=== PATIENT | male | born 1975 | race Caucasian/White ===

== ENCOUNTER 2019-07-26 12:43 | Outpatient (CLI) | payer BC ==
--- NOTE | 2019-07-28 00:12 | Ultrasound Report ---
Reason: LEFT TESTICULAR PAIN ORCHITITS / EPIDIDYMITIS Procedure Date: 07/26/2019 Accession Number: [id number] / [id number] Procedure: US - Testicle w/Doppler CPT Code: FULL RESULT: EXAM: SCROTAL ULTRASOUND EXAM DATE: 07/26/2019 01:43 PM. CLINICAL HISTORY: Left testicular pain, orchitis/epididymitis. COMPARISON: None. TECHNIQUE: Real-time scanning was performed with static images obtained. Color-flow images were utilized. FINDINGS: Right: Testis: 5.4 x 2.8 x 3.8 cm. Normal size and echotexture. No mass, calcification, or abnormal blood flow. Epididymis: 2.5 x 0.7 x 0.8. cm. Normal size and echotexture. No mass or abnormal blood flow. 4 mm simple-appearing cyst noted of the epididymal head. Hydrocele: Small. Varicocele: None. Left: Testis: 5.2 x 3.5 x 4.7 cm. Heterogeneous echotexture solid vascular mass measuring 4.3 x 3.1 x 3.4 cm. Epididymis: Not well seen. Visualized portions appear normal. Hydrocele: Small. Varicocele: Small. IMPRESSION: 1. A 4.3 cm solid heterogeneous mass of the left testicle suspicious for malignancy. JUANA The call report notification system was initiated by Dr. Per Angel at 08:46 AM on 07/27/2019. ADDENDUM: 07/27/19 09:00 The above call report findings were discussed with Kunal Merritt by Dr. Per Angel at 09:00 AM on 07/27/2019.
== END 2019-07-26 12:44 | disposition home or self-care (01) ==
LOC: DI 12:43
PROVIDERS: ATTEND Family Medicine
DX: N50.9 Disorder of male genital organs, unspecified (principal)
CPT/HCPCS: 76870; 93975

== ENCOUNTER 2019-07-29 13:56 | Outpatient (CLI) | payer BC ==
[2019-07-29 14:34] LABS: HCG,QUALITATIVE BLOOD NEGATIVE
== END 2019-07-29 13:57 | disposition home or self-care (01) ==
LOC: LAB 13:56
PROVIDERS: ATTEND Specialist
DX: C62.92 Malignant neoplasm of left testis, unspecified whether descended or undescended (principal)
CPT/HCPCS: 36415; 82105; 83615; 84703

== ENCOUNTER 2019-09-14 07:33 | Outpatient (CLI) | payer BC ==
[2019-09-14 08:37] LABS: CHOL/HDL RATIO 3.7 (<5.0); CHOLESTEROL 170 mg/dL; HDL CHOLESTEROL 46 mg/dL; LDL CHOLESTEROL,CALCULATED 113 mg/dL; LDL/HDL RATIO 2.5 (<3.6); VLDL CHOLESTEROL 11 mg/dL
[2019-09-14 08:50] LABS: THYROID STIMULATING HORMONE 1.43 uIU/mL (0.34-5.60)
[2019-09-14 08:52] LABS: FREE T4 (FREE THYROXINE) 0.77 ng/dL (0.58-1.64)
[2019-09-14 08:55] LABS: FERRITIN 164.9 ng/mL (23.9-336.2)
== END 2019-09-14 07:34 | disposition home or self-care (01) ==
LOC: LAB 07:33
PROVIDERS: ATTEND Naturopath
DX: C63.7 Malignant neoplasm of other specified male genital organs (principal); E03.9 Hypothyroidism, unspecified; E78.2 Mixed hyperlipidemia
CPT/HCPCS: 36415; 80061; 82728; 82955; 83721; 84439; 84443; 84481; 85018

== ENCOUNTER 2019-09-15 13:14 | Outpatient (CLI) | payer BC ==
[2019-09-15] MEDS ORDERED: ALBUTEROL NEB 2.5 MG/3 ML INH SCH (13:34)
== END 2019-09-15 13:15 | disposition home or self-care (01) ==
LOC: RT 13:14
PROVIDERS: ATTEND Internal Medicine Hematology & Oncology
DX: C62.92 Malignant neoplasm of left testis, unspecified whether descended or undescended (principal)
CPT/HCPCS: 94060